=== PATIENT | male | born 1950 | race Caucasian/White ===

== ENCOUNTER 2021-07-01 09:42 | Inpatient (IN) ==
[2021-07-01 10:29] LABS: Basophils % 0.2 % (0.0-0.8); Eosinophils % 0.1 % (0.00-10.9); Hematocrit 43.7 VOL% (42.0-52.0); Hemoglobin 13.9 GM/DL (14.0-18.0); Immature Granulocytes % 1.6 %; Lymphocytes # 0.7 10*3/uL (1.4-4.0); Lymphocytes % 5.5 % (21.2-54.2); Mean Corpuscular HGB Conc 31.8 GM/DL (32-36); Mean Corpuscular Volume 98.4 FL (87-102); Mean Platelet Volume 10.2 FL (9.6-12.0); Monocytes % 6.7 % (1.7-12.7); Neutrophils % 85.9 % (38.7-73.9); Platelet Count 398 T/CUMM (130-400); Red Blood Count 4.44 MC/CUMM (3.8-5.5); Red Cell Distribution Width 13.2 % (9.3-17.3); White Blood Count 12.6 T/CUMM (4-12)
[2021-07-01 10:46] LABS: Alanine Aminotransferase 26 U/L (16-61); Albumin 3.3 G/DL (3.4-5.0); Alkaline Phosphatase 66 U/L (45-117); Aspartate Amino Transferase 10 U/L (0-37); Bilirubin,Total < 0.39 MG/DL (0.20-1.00); Blood Urea Nitrogen 135 MG/DL (7-18); Calcium 9.8 MG/DL (8.5-10.1); Carbon Dioxide 13 MMOL/L (21-32); Estimated Glom Filtration Rate 6 ML/MIN; Glucose 204 MG/DL (74-106); Osmolality,Calculated 317.2 MOS/KG (273-304); Potassium 5.6 MMOL/L (3.5-5.1); Sodium 134 MMOL/L (136-145); Total Protein 8.5 G/DL (6.4-8.2)
[2021-07-01] MEDS ORDERED: SODIUM CHLORIDE 0.9% 1,000 ML IV STA (10:46)
[2021-07-01] MEDS ORDERED: ONDANSETRON 4 MG/2 ML VIAL IV PRN (12:04)
[2021-07-01] MEDS ORDERED: ACETAMINOPHEN 325 MG TABLET PO PRN (12:04)
[2021-07-01] MEDS: SODIUM CHLORIDE 0.9% 1,000 ML IV SCH ×2 (12:40→20:40)
[2021-07-01] MEDS ORDERED: SODIUM POLYSTYRENE SULFATE 15 GM/60 ML BOTTLE PO STA (13:38)
[2021-07-01] MEDS ORDERED: GLUCAGON 1 MG VIAL IM PRN (13:39)
[2021-07-01] MEDS ORDERED: DEXTROSE 10% 250 ML BAG IV PRN (13:39)
[2021-07-01] MEDS: INSULIN REGULAR 100 UNIT/ML SUBCUT SCH ×2 (18:37→20:41)
[2021-07-01] MEDS: DOCUSATE SODIUM 100 MG CAPSULE PO SCH (20:39)
[2021-07-02 06:13] LABS: Basophils % 0.2 % (0.0-0.8); Hematocrit 38.2 VOL% (42.0-52.0); Hemoglobin 12.4 GM/DL (14.0-18.0); Immature Granulocytes % 1.1 %; Immature Granulocytes Absolute 0.15 #; Lymphocytes # 0.2 10*3/uL (1.4-4.0); Lymphocytes % 1.7 % (21.2-54.2); Mean Corpuscular HGB Conc 32.5 GM/DL (32-36); Mean Corpuscular Volume 98.5 FL (87-102); Mean Platelet Volume 10.2 FL (9.6-12.0); Monocytes % 4.3 % (1.7-12.7); Neutrophils % 92.7 % (38.7-73.9); Platelet Count 294 T/CUMM (130-400); Red Blood Count 3.88 MC/CUMM (3.8-5.5); Red Cell Distribution Width 13.5 % (9.3-17.3); White Blood Count 13.3 T/CUMM (4-12)
[2021-07-02 06:38] LABS: Lymphocytes 3 % (20-55); Platelet Estimate Adequate; Segmented Neutrophils 94 % (50-85); Total Cells Counted 100
[2021-07-02 07:00] LABS: Alanine Aminotransferase 19 U/L (16-61); Albumin 2.8 G/DL (3.4-5.0); Alkaline Phosphatase 55 U/L (45-117); Aspartate Amino Transferase 9 U/L (0-37); Bilirubin,Total < 0.39 MG/DL (0.20-1.00); Blood Urea Nitrogen 137 MG/DL (7-18); Calcium 8.9 MG/DL (8.5-10.1); Carbon Dioxide 8 MMOL/L (21-32); Estimated Glom Filtration Rate 8 ML/MIN; Glucose 156 MG/DL (74-106); Sodium 136 MMOL/L (136-145); Total Protein 7.1 G/DL (6.4-8.2)
[2021-07-02] MEDS: SODIUM CHLORIDE 0.9% 1,000 ML IV SCH ×2 (07:27→13:41)
[2021-07-02] MEDS ORDERED: PANTOPRAZOLE 40 MG TABLET PO SCH (09:00)
[2021-07-02] MEDS: INSULIN REGULAR 100 UNIT/ML SUBCUT SCH ×4 (09:47→23:02)
[2021-07-02] MEDS: CYANOCOBALAMIN 500 MCG TABLET PO SCH (10:01)
[2021-07-02] MEDS: DOCUSATE SODIUM 100 MG CAPSULE PO SCH ×2 (10:02→23:00)
[2021-07-02] MEDS: LORATADINE 10 MG TABLET PO SCH (10:02)
[2021-07-02] MEDS: cefTRIAXone 1,000 MG in SODIUM CHLORIDE 0.9% 100 ML IV SCH (18:00)
[2021-07-02] MEDS: SODIUM BICARB INJ 150 MEQ in DEXTROSE 5% 850 ML IV SCH (18:28)
[2021-07-02] MEDS: ALBUMIN 25% 25 GM/100 ML VIAL IV SCH (19:24)
[2021-07-02 21:19] LABS: Hyaline Casts,Urine 3 /LPF (0-3); RBC,Urine 2 /HPF (0-4)
[2021-07-02 21:23] LABS: Glucose,Urine (UA) Negative (Negative); Ketones,Urine Negative (Negative); Nitrite,Urine Negative (Negative); Protein,Urine Trace MG/DL; Urine Appearance Clear (Clear); Urine Color Yellow (Yellow)
[2021-07-02 21:24] LABS: Bilirubin,Urine Negative (Negative); Blood, Urine Negative (Negative); Urine Urobilinogen 0.2 EU/DL (<2.0)
[2021-07-02] MEDS ORDERED: methylPREDNISolone SOD SUC 40 MG/1 ML VIAL IV SCH (22:00)
[2021-07-02] MEDS: PANTOPRAZOLE 40 MG TABLET PO SCH (23:01)
[2021-07-02] MEDS: FERROUS SULFATE 325 MG TABLET PO SCH (23:01)
[2021-07-02] MEDS: MESALAMINE 800 MG TABLET PO SCH (23:01)
[2021-07-03] MEDS: ALBUMIN 25% 25 GM/100 ML VIAL IV SCH ×3 (01:45→16:55)
[2021-07-03 05:34] LABS: Basophils % 0.2 % (0.0-0.8); Eosinophils # 0.1 10*3/uL (0.0-0.87); Eosinophils % 1.8 % (0.00-10.9); Hematocrit 28.2 VOL% (42.0-52.0); Hemoglobin 9.5 GM/DL (14.0-18.0); Immature Granulocytes % 0.9 %; Immature Granulocytes Absolute 0.05 #; Lymphocytes # 0.8 10*3/uL (1.4-4.0); Lymphocytes % 14.2 % (21.2-54.2); Mean Corpuscular HGB Conc 33.7 GM/DL (32-36); Mean Corpuscular Volume 94.6 FL (87-102); Mean Platelet Volume 10.4 FL (9.6-12.0); Monocytes % 10.5 % (1.7-12.7); Neutrophils % 72.4 % (38.7-73.9); Platelet Count 241 T/CUMM (130-400); Red Blood Count 2.98 MC/CUMM (3.8-5.5); Red Cell Distribution Width 13.3 % (9.3-17.3); White Blood Count 5.6 T/CUMM (4-12)
[2021-07-03 05:41] LABS: Calcium 8.3 MG/DL (8.5-10.1); Osmolality,Calculated 321.3 MOS/KG (273-304)
[2021-07-03 06:07] LABS: Band Neutrophils 1 % (0-10); Eosinophils 2 % (0-10); Hypochromia 1+; Lymphocytes 10 % (20-55); Microcytosis 1+; Platelet Estimate Adequate; Segmented Neutrophils 78 % (50-85); Total Cells Counted 100
[2021-07-03] MEDS: SODIUM BICARB INJ 150 MEQ in DEXTROSE 5% 850 ML IV SCH ×2 (06:30→18:20)
[2021-07-03] MEDS: DOCUSATE SODIUM 100 MG CAPSULE PO SCH ×2 (08:33→22:37)
[2021-07-03] MEDS: methylPREDNISolone SOD SUC 40 MG/1 ML VIAL IV SCH ×2 (08:33→22:35)
[2021-07-03] MEDS: CYANOCOBALAMIN 500 MCG TABLET PO SCH (08:33)
[2021-07-03] MEDS: INSULIN REGULAR 100 UNIT/ML SUBCUT SCH ×4 (08:33→22:37)
[2021-07-03] MEDS: PANTOPRAZOLE 40 MG TABLET PO SCH ×2 (08:33→22:38)
[2021-07-03] MEDS: MESALAMINE 800 MG TABLET PO SCH ×4 (08:34→22:38)
[2021-07-03] MEDS: LORATADINE 10 MG TABLET PO SCH (08:34)
[2021-07-03] MEDS ORDERED: POTASSIUM CHLORIDE 20 MEQ TABLET PO ONE (09:00)
[2021-07-03] MEDS: cefTRIAXone 1,000 MG in SODIUM CHLORIDE 0.9% 100 ML IV SCH (15:27)
[2021-07-03] MEDS ORDERED: MIRTAZAPINE 15 MG TABLET PO SCH (21:00)
[2021-07-03] MEDS: FERROUS SULFATE 325 MG TABLET PO SCH (22:37)
[2021-07-04] MEDS: ALBUMIN 25% 25 GM/100 ML VIAL IV SCH ×3 (01:26→16:27)
[2021-07-04] MEDS: SODIUM BICARB INJ 150 MEQ in DEXTROSE 5% 850 ML IV SCH ×3 (04:58→15:47)
[2021-07-04 06:55] LABS: Calcium 7.6 MG/DL (8.5-10.1); Potassium 3.1 MMOL/L (3.5-5.1)
[2021-07-04] MEDS: INSULIN REGULAR 100 UNIT/ML SUBCUT SCH ×4 (08:01→20:58)
[2021-07-04] MEDS: PANTOPRAZOLE 40 MG TABLET PO SCH ×2 (08:02→20:57)
[2021-07-04] MEDS: MESALAMINE 800 MG TABLET PO SCH ×4 (08:02→20:57)
[2021-07-04] MEDS: LORATADINE 10 MG TABLET PO SCH (08:02)
[2021-07-04] MEDS: CYANOCOBALAMIN 500 MCG TABLET PO SCH (08:02)
[2021-07-04] MEDS: POTASSIUM CHLORIDE 20 MEQ TABLET PO PRN ×4 (08:02→14:00)
[2021-07-04] MEDS: methylPREDNISolone SOD SUC 40 MG/1 ML VIAL IV SCH ×2 (08:03→20:58)
[2021-07-04 08:38] LABS: Basophils % 0.3 % (0.0-0.8); Hemoglobin 9.3 GM/DL (14.0-18.0); Immature Granulocytes % 0.5 %; Immature Granulocytes Absolute 0.02 #; Lymphocytes # 0.2 10*3/uL (1.4-4.0); Lymphocytes % 4.6 % (21.2-54.2); Mean Corpuscular HGB Conc 34.4 GM/DL (32-36); Mean Corpuscular Volume 93.4 FL (87-102); Mean Platelet Volume 11.1 FL (9.6-12.0); Monocytes % 7.9 % (1.7-12.7); Neutrophils % 86.7 % (38.7-73.9); Platelet Count 226 T/CUMM (130-400); Red Blood Count 2.89 MC/CUMM (3.8-5.5); Red Cell Distribution Width 13.1 % (9.3-17.3); White Blood Count 3.9 T/CUMM (4-12)
[2021-07-04 08:58] LABS: Hypochromia 1+; Lymphocytes 3 % (20-55); Microcytosis 1+; Platelet Estimate Adequate; Segmented Neutrophils 85 % (50-85); Total Cells Counted 100
[2021-07-04] MEDS: DOCUSATE SODIUM 100 MG CAPSULE PO SCH ×2 (09:38→20:58)
[2021-07-04] MEDS: cefTRIAXone 1,000 MG in SODIUM CHLORIDE 0.9% 100 ML IV SCH (15:16)
[2021-07-04] MEDS: FERROUS SULFATE 325 MG TABLET PO SCH (20:57)
[2021-07-04] MEDS: MIRTAZAPINE 30 MG TABLET PO SCH (20:57)
[2021-07-05] MEDS: ALBUMIN 25% 25 GM/100 ML VIAL IV SCH ×3 (01:32→18:13)
[2021-07-05 07:06] LABS: Hematocrit 29.1 VOL% (42.0-52.0); Hemoglobin 9.8 GM/DL (14.0-18.0); Immature Granulocytes % 0.6 %; Immature Granulocytes Absolute 0.04 #; Lymphocytes # 0.3 10*3/uL (1.4-4.0); Mean Corpuscular HGB Conc 33.7 GM/DL (32-36); Mean Corpuscular Volume 95.4 FL (87-102); Mean Platelet Volume 10.7 FL (9.6-12.0); Monocytes % 7.6 % (1.7-12.7); Neutrophils % 86.8 % (38.7-73.9); Platelet Count 238 T/CUMM (130-400); Red Blood Count 3.05 MC/CUMM (3.8-5.5); White Blood Count 6.2 T/CUMM (4-12)
[2021-07-05 07:46] LABS: Alanine Aminotransferase 20 U/L (16-61); Albumin 4.4 G/DL (3.4-5.0); Alkaline Phosphatase 33 U/L (45-117); Aspartate Amino Transferase 12 U/L (0-37); Bilirubin,Total < 0.39 MG/DL (0.20-1.00); Blood Urea Nitrogen 49 MG/DL (7-18); Calcium 7.8 MG/DL (8.5-10.1); Carbon Dioxide 33 MMOL/L (21-32); Estimated Glom Filtration Rate 52 ML/MIN; Glucose 253 MG/DL (74-106); Osmolality,Calculated 298.5 MOS/KG (273-304); Potassium 3.5 MMOL/L (3.5-5.1); Sodium 139 MMOL/L (136-145); Total Protein 7.5 G/DL (6.4-8.2)
[2021-07-05] MEDS: INSULIN REGULAR 100 UNIT/ML SUBCUT SCH ×4 (09:32→20:32)
[2021-07-05] MEDS: methylPREDNISolone SOD SUC 40 MG/1 ML VIAL IV SCH ×2 (11:31→20:36)
[2021-07-05] MEDS: LORATADINE 10 MG TABLET PO SCH (11:32)
[2021-07-05] MEDS: MESALAMINE 800 MG TABLET PO SCH ×4 (11:32→20:32)
[2021-07-05] MEDS: CYANOCOBALAMIN 500 MCG TABLET PO SCH (11:32)
[2021-07-05] MEDS: DOCUSATE SODIUM 100 MG CAPSULE PO SCH ×2 (11:32→20:33)
[2021-07-05] MEDS: PANTOPRAZOLE 40 MG TABLET PO SCH ×2 (11:32→20:31)
[2021-07-05] MEDS: SODIUM BICARB INJ 150 MEQ in DEXTROSE 5% 850 ML IV SCH (11:33)
[2021-07-05] MEDS: cefTRIAXone 1,000 MG in SODIUM CHLORIDE 0.9% 100 ML IV SCH (18:07)
[2021-07-05] MEDS: MIRTAZAPINE 30 MG TABLET PO SCH (20:31)
[2021-07-05] MEDS: FERROUS SULFATE 325 MG TABLET PO SCH (20:32)
[2021-07-06] MEDS: SODIUM BICARB INJ 150 MEQ in DEXTROSE 5% 850 ML IV SCH (00:30)
[2021-07-06 06:15] LABS: Basophils % 0.1 % (0.0-0.8); Hemoglobin 9.7 GM/DL (14.0-18.0); Immature Granulocytes % 1.4 %; Immature Granulocytes Absolute 0.13 #; Lymphocytes # 0.9 10*3/uL (1.4-4.0); Lymphocytes % 9.9 % (21.2-54.2); Mean Corpuscular HGB Conc 33.4 GM/DL (32-36); Mean Corpuscular Volume 95.1 FL (87-102); Mean Platelet Volume 10.3 FL (9.6-12.0); Monocytes % 7.8 % (1.7-12.7); NRBC # 0.02 10*3/uL; Neutrophils % 80.8 % (38.7-73.9); Platelet Count 237 T/CUMM (130-400); Red Blood Count 3.05 MC/CUMM (3.8-5.5); Red Cell Distribution Width 12.6 % (9.3-17.3); White Blood Count 9.5 T/CUMM (4-12)
[2021-07-06 06:53] LABS: Osmolality,Calculated 285.8 MOS/KG (273-304); Potassium 2.9 MMOL/L (3.5-5.1)
[2021-07-06 06:55] LABS: Ferritin 1037.3 ng/mL (26-388)
[2021-07-06] MEDS ORDERED: SODIUM BICARB INJ 150 MEQ in DEXTROSE 5% 1,000 ML IV SCH (07:30)
[2021-07-06] MEDS: CYANOCOBALAMIN 500 MCG TABLET PO SCH (09:48)
[2021-07-06] MEDS: FERROUS SULFATE 325 MG TABLET PO SCH ×2 (09:48→20:25)
[2021-07-06] MEDS: MESALAMINE 800 MG TABLET PO SCH ×4 (09:48→20:26)
[2021-07-06] MEDS: methylPREDNISolone SOD SUC 40 MG/1 ML VIAL IV SCH ×2 (09:49→20:27)
[2021-07-06] MEDS: LORATADINE 10 MG TABLET PO SCH (09:49)
[2021-07-06] MEDS: PANTOPRAZOLE 40 MG TABLET PO SCH ×2 (09:49→20:26)
[2021-07-06] MEDS: DOCUSATE SODIUM 100 MG CAPSULE PO SCH ×2 (09:50→20:26)
[2021-07-06] MEDS: INSULIN REGULAR 100 UNIT/ML SUBCUT SCH ×4 (10:01→20:27)
[2021-07-06] MEDS ORDERED: MAGNESIUM SULF RIDER 2 GM/50 ML PREMIX IV ONE ×2 (11:25→21:49)
[2021-07-06] MEDS ORDERED: POTASSIUM CHLORIDE 20 MEQ TABLET PO ONE (11:25)
[2021-07-06] MEDS: amLODIPine 5 MG TABLET PO SCH (14:13)
[2021-07-06] MEDS: cefTRIAXone 1,000 MG in SODIUM CHLORIDE 0.9% 100 ML IV SCH (16:09)
[2021-07-06] MEDS: MIRTAZAPINE 30 MG TABLET PO SCH (20:26)
[2021-07-06] MEDS: POTASSIUM CHLORIDE 20 MEQ TABLET PO SCH (20:26)
[2021-07-07 05:47] LABS: Basophils % 0.1 % (0.0-0.8); Hematocrit 33.5 VOL% (42.0-52.0); Hemoglobin 11.1 GM/DL (14.0-18.0); Immature Granulocytes % 1.5 %; Immature Granulocytes Absolute 0.13 #; Lymphocytes # 0.7 10*3/uL (1.4-4.0); Lymphocytes % 8.5 % (21.2-54.2); Mean Corpuscular HGB Conc 33.1 GM/DL (32-36); Mean Corpuscular Volume 96.3 FL (87-102); Mean Platelet Volume 10.5 FL (9.6-12.0); Monocytes % 7.2 % (1.7-12.7); NRBC # 0.04 10*3/uL; Neutrophils % 82.7 % (38.7-73.9); Platelet Count 234 T/CUMM (130-400); Red Blood Count 3.48 MC/CUMM (3.8-5.5); Red Cell Distribution Width 12.8 % (9.3-17.3); White Blood Count 8.5 T/CUMM (4-12)
[2021-07-07 05:55] LABS: Osmolality,Calculated 289.7 MOS/KG (273-304); Potassium 3.4 MMOL/L (3.5-5.1)
[2021-07-07 08:48] LABS: Alanine Aminotransferase 178 U/L (16-61); Albumin 4.1 G/DL (3.4-5.0); Alkaline Phosphatase 41 U/L (45-117); Aspartate Amino Transferase 126 U/L (0-37); Bilirubin,Direct < 0.100 MG/DL (0.0-0.20); Bilirubin,Indirect 0.3 MG/DL (0.0-1.0); Bilirubin,Total < 0.39 MG/DL (0.20-1.00); Total Protein 7.3 G/DL (6.4-8.2)
[2021-07-07] MEDS ORDERED: CALCIUM (CARBONATE)/VITAMIN D 600 MG-400 UNIT TABLET PO SCH (09:00)
[2021-07-07] MEDS: FERROUS SULFATE 325 MG TABLET PO SCH (09:35)
[2021-07-07] MEDS: CYANOCOBALAMIN 500 MCG TABLET PO SCH (09:36)
[2021-07-07] MEDS: LORATADINE 10 MG TABLET PO SCH (09:36)
[2021-07-07] MEDS: amLODIPine 5 MG TABLET PO SCH (09:36)
[2021-07-07] MEDS: DOCUSATE SODIUM 100 MG CAPSULE PO SCH (09:37)
[2021-07-07] MEDS: POTASSIUM CHLORIDE 20 MEQ TABLET PO SCH (09:37)
[2021-07-07] MEDS: MESALAMINE 800 MG TABLET PO SCH ×2 (09:37→14:15)
[2021-07-07] MEDS: INSULIN REGULAR 100 UNIT/ML SUBCUT SCH ×2 (09:37→12:37)
[2021-07-07] MEDS: PANTOPRAZOLE 40 MG TABLET PO SCH (09:37)
[2021-07-07] MEDS ORDERED: MAGNESIUM SULF RIDER 2 GM/50 ML PREMIX IV ONE (11:00)
[2021-07-07] MEDS ORDERED: predniSONE 10 MG TABLET PO SCH (11:00)
[2021-07-07] MEDS: cefTRIAXone 1,000 MG in SODIUM CHLORIDE 0.9% 100 ML IV SCH (16:00)
[2021-07-07 16:45] VITALS: BP 132/86
== END 2021-07-07 16:40 | disposition home or self-care (01) | DRG 683 ==
LOC: N.ED 09:42 → N.5E 13:52
PROVIDERS: ADMIT Internal Medicine; ATTEND Internal Medicine